=== PATIENT | male | born 1950 | race Caucasian/White ===

== ENCOUNTER 2022-05-07 07:36 | Day surgery (SDC) | payer BC ==
[~2022-05-07] VITALS: Ht 165.1 cm; Wt 91.6 kg
[2022-05-07] VITALS (9 sets, daily range): BP systolic 113–159; BP diastolic 58–74
[~2022-05-07 07:36] MED LIST: FLUO20CA39 PO; LISI5TAB22 PO; METF500T PO; SIMV-42 PO; SYN0.088T PO
[2022-05-07] MEDS ORDERED: vancomycin 1,500 MG in NS 300ml IV soln IV ONE (08:02)
[2022-05-07] MEDS ORDERED: ceFAZolin inj. 2,000 MG in dextrose 5%-water 100 ML IV ONE (08:02)
[2022-05-07] MEDS ORDERED: normal saline 1000ml 1,000 ML IV SCH (08:03)
[2022-05-07] MEDS ORDERED: FLUO40CA PO (08:30)
[2022-05-07] MEDS ORDERED: METF-438 PO (08:30)
[2022-05-07] MEDS ORDERED: LISI-643 PO (08:30)
[2022-05-07] MEDS ORDERED: SEMA0.25 SQ (08:30)
[2022-05-07] MEDS ORDERED: PANT40TA54 PO (08:30)
[2022-05-07] MEDS ORDERED: LEVO50TA8 PO (08:30)
[2022-05-07 08:36] LABS: BASOPHILS % (AUTO) 0.9 % (0-1); EOSINOPHILS # (AUTO) 0.2 X10'3 (0-0.9); EOSINOPHILS % (AUTO) 4.7 % (0-6); HEMOGLOBIN 15.3 g/dl (14.0-17.9); LYMPHOCYTES # (AUTO) 1.4 X10'3 (1.1-4.8); LYMPHOCYTES % (AUTO) 36.8 % (21-51); MEAN CORPUSCULAR HEMOGLOBIN 32.8 PG (27.0-31.0); MEAN CORPUSCULAR VOLUME 96.6 FL (78-98); MEAN PLATELET VOLUME 8.7 FL (7.4-10.4); MONOCYTES # (AUTO) 0.6 X10'3 (0-0.9); MONOCYTES % (AUTO) 15.9 % (2-12); NEUTROPHILS # (AUTO) 1.6 X10'3 (1.8-7.7); NEUTROPHILS % (AUTO) 41.7 % (42-75); PLATELET COUNT 130 X10'3 (140-440); RED BLOOD COUNT 4.66 X10'6 (4.70-6.10); RED CELL DISTRIBUTION WIDTH 13.4 % (11.5-14.5); WHITE BLOOD COUNT 3.9 X10'3 (4.5-11.0)
[2022-05-07] MEDS ORDERED: fentaNYL/PF 50MCG/1 ML 2ML syringe ONE (08:48)
[2022-05-07] MEDS ORDERED: midazolam 1 mg/ML 2ml injection ONE (08:48)
[2022-05-07] MEDS ORDERED: iohexol 350 MG/ML 50ML vial IV ONE (08:48)
[2022-05-07] MEDS ORDERED: LIDOCAINE 2%/EPI 1:100,000 inj. Multi-dose 20 ML VIAL ONE (08:48)
[2022-05-07] MEDS ORDERED: vancomycin 1,000mg inj ONE (08:48)
[2022-05-07 08:58] LABS: ALBUMIN 4.3 G/DL (3.4-5.0); ANION GAP 7 (8-16); BLOOD UREA NITROGEN 14 MG/DL (7-18); BUN/CREATININE RATIO 12.7 (5.4-32.0); CALCIUM 9.5 MG/DL (8.5-10.1); CHLORIDE 104 MMOL/L (99-107); GLUCOSE 113 MG/DL (70-104); MAGNESIUM 1.8 MG/DL (1.5-2.4); POTASSIUM 4.1 MMOL/L (3.5-5.1); SODIUM 141 MMOL/L (135-145); TOTAL CARBON DIOXIDE 30.5 MMOL/L (24-32); eGFR 66 ML/MIN
[2022-05-07 09:00] LABS: TOTAL CELLS COUNTED 100
[2022-05-08 09:47] LABS: PLATELET ESTIMATE DECREASED
== END 2022-05-07 12:45 | disposition home or self-care (01) ==
LOC: SSTAY O 07:36
PROVIDERS: ATTEND Internal Medicine Cardiovascular Disease
DX: I49.5 Sick sinus syndrome (principal); I35.0 Nonrheumatic aortic (valve) stenosis; I10 Essential (primary) hypertension; E78.5 Hyperlipidemia, unspecified; E11.9 Type 2 diabetes mellitus without complications; E03.9 Hypothyroidism, unspecified; K21.9 Gastro-esophageal reflux disease without esophagitis; Z98.890 Other specified postprocedural states; Z98.1 Arthrodesis status; Z87.891 Personal history of nicotine dependence; Z72.89 Other problems related to lifestyle; Z79.84 Long term (current) use of oral hypoglycemic drugs; Z79.899 Other long term (current) drug therapy; Z80.1 Family history of malignant neoplasm of trachea, bronchus and lung
CPT/HCPCS: 33208; 36415; 71045; 80048; 82948; 83735; 85025; 85610; 93005; 99152; 99153; C1769; C1785; C1894; C1898; J0690; J2250; J3010; J3370; J7030; J7040; J7060; Q9967; 85007

== ENCOUNTER 2022-06-01 06:54 | Day surgery (SDC) | payer BC ==
[2022-06-01] VITALS (9 sets, daily range): BP systolic 128–162; BP diastolic 80–94
[~2022-06-01] VITALS: Ht 162.6 cm; Wt 91.5 kg
[~2022-06-01 06:54] MED LIST changes: -FLUO20CA39 PO; +FLUO40CA PO; +LEVO50TA8 PO; +LISI-643 PO; +METF-438 PO; +PANT40TA54 PO; +SEMA0.25 SQ; -SYN0.088T PO
[2022-06-01] MEDS ORDERED: diphenhydrAMINE 25mg capsule PO PRN (07:15)
[2022-06-01] MEDS ORDERED: normal saline 1,000 ML IV SCH (07:15)
[2022-06-01] MEDS ORDERED: FLUO20CA39 PO (07:17)
[2022-06-01] MEDS ORDERED: ASPI81TA52 PO (07:17)
[2022-06-01] MEDS ORDERED: MULT-1085 PO (07:18)
[2022-06-01 07:41] LABS: BASOPHILS % (AUTO) 0.9 % (0-1); EOSINOPHILS # (AUTO) 0.2 X10'3 (0-0.9); EOSINOPHILS % (AUTO) 4.7 % (0-6); HEMOGLOBIN 14.9 g/dl (14.0-17.9); LYMPHOCYTES # (AUTO) 1.3 X10'3 (1.1-4.8); LYMPHOCYTES % (AUTO) 36.5 % (21-51); MEAN CORPUSCULAR HEMOGLOBIN 32.8 PG (27.0-31.0); MEAN CORPUSCULAR HGB CONC 34.6 g/dL (33.0-36.5); MEAN PLATELET VOLUME 8.3 FL (7.4-10.4); MONOCYTES # (AUTO) 0.5 X10'3 (0-0.9); MONOCYTES % (AUTO) 13.7 % (2-12); NEUTROPHILS # (AUTO) 1.5 X10'3 (1.8-7.7); NEUTROPHILS % (AUTO) 44.2 % (42-75); PLATELET COUNT 121 X10'3 (140-440); RED BLOOD COUNT 4.53 X10'6 (4.70-6.10); RED CELL DISTRIBUTION WIDTH 13.7 % (11.5-14.5); WHITE BLOOD COUNT 3.5 X10'3 (4.5-11.0)
[2022-06-01 07:52] LABS: ALBUMIN 3.9 G/DL (3.4-5.0); ANION GAP 5 (8-16); BLOOD UREA NITROGEN 12 MG/DL (7-18); BUN/CREATININE RATIO 10.7 (5.4-32.0); CALCIUM 9.4 MG/DL (8.5-10.1); CHLORIDE 105 MMOL/L (99-107); CREATININE 1.12 MG/DL (0.60-1.10); GLUCOSE 116 MG/DL (70-104); MAGNESIUM 1.7 MG/DL (1.5-2.4); POTASSIUM 4.1 MMOL/L (3.5-5.1); SODIUM 140 MMOL/L (135-145); TOTAL CARBON DIOXIDE 29.8 MMOL/L (24-32); eGFR 64 ML/MIN
[2022-06-01] MEDS ORDERED: SODIUM BICARB 150mEq/D5W 1L 1,000 ML IV ONE (08:05)
[2022-06-01] MEDS ORDERED: midazolam 1 mg/ML 2ml injection ONE ×2 (11:11→12:01)
[2022-06-01] MEDS ORDERED: heparin 1,000unit/ml 10ml vial 10 ML ONE (11:11)
[2022-06-01] MEDS ORDERED: iohexol 350 MG/ML 50ML vial IV ONE (11:11)
[2022-06-01] MEDS ORDERED: LIDOcaine 1% 30ml preserv. free vial ONE (11:11)
[2022-06-01] MEDS ORDERED: fentaNYL/PF 50MCG/1 ML 2ML syringe ONE (11:11)
[2022-06-01] MEDS ORDERED: iohexol 350MG/ML 100ml bottle IV ONE (11:11)
--- NOTE | 2022-06-01 13:10 | NUR ---
Pt returns from [facility]. Report received from [facility] VO. Right groin site arterial closure with perclose, venous closure with manual pressure with slight "ooze" Femostop in place at 40. Femostop to be removed at 1400. Pedal Pulses +, Dressing CD&I, no signs of bleeding, bruising or hematoma noted. Family at bedside, pt drinking water without issues. Family planning to leave for "a little bit and get lunch". They are planning to bring back lunch for pt. Pt resting quietly.
[2022-06-01] MEDS ORDERED: HYDROcodone/acetaminophen 5mg/325mg tablet PO PRN (13:25)
[2022-06-01] MEDS ORDERED: HYDROcodone/acetaminophen 10/325mg tab PO PRN (13:25)
[2022-06-01] MEDS ORDERED: proCHLORperazine 10 MG/2 ml inj IV PRN (13:25)
[2022-06-01] MEDS ORDERED: ondansetron/PF 4mg/2ml inj IV PRN (13:25)
[2022-06-01] MEDS ORDERED: normal saline 1000ml 1,000 ML IV SCH (13:25)
== END 2022-06-01 15:55 | disposition home or self-care (01) ==
LOC: SSTAY O 06:54
PROVIDERS: ATTEND Internal Medicine Cardiovascular Disease
DX: I35.0 Nonrheumatic aortic (valve) stenosis (principal); I25.10 Atherosclerotic heart disease of native coronary artery without angina pectoris; I10 Essential (primary) hypertension; E78.5 Hyperlipidemia, unspecified; E11.9 Type 2 diabetes mellitus without complications; E03.9 Hypothyroidism, unspecified; K21.9 Gastro-esophageal reflux disease without esophagitis; K76.0 Fatty (change of) liver, not elsewhere classified; I49.5 Sick sinus syndrome; Z95.0 Presence of cardiac pacemaker; Z79.82 Long term (current) use of aspirin; Z79.84 Long term (current) use of oral hypoglycemic drugs; Z79.899 Other long term (current) drug therapy; Z98.890 Other specified postprocedural states; Z87.891 Personal history of nicotine dependence; Z72.89 Other problems related to lifestyle; Z80.1 Family history of malignant neoplasm of trachea, bronchus and lung; Z82.49 Family history of ischemic heart disease and other diseases of the circulatory system
CPT/HCPCS: 36415; 80048; 82948; 83735; 85025; 85610; 93005; 93456; 99152; 99153; C1751; C1760; C1769; C1894; J1644; J2250; J3010; J3490; J7030; Q0163; Q9967; C1725

== ENCOUNTER 2022-06-15 09:52 | Outpatient (CLI) | payer BC ==
[~2022-06-15 09:52] MED LIST changes: +ASPI81TA52 PO; +FLUO20CA39 PO; -FLUO40CA PO; -LISI5TAB22 PO; -METF-438 PO; +MULT-1085 PO
[2022-06-15 10:56] LABS: BASOPHILS # (AUTO) 0.1 X10'3 (0-0.2); BASOPHILS % (AUTO) 1.6 % (0-1); EOSINOPHILS # (AUTO) 0.2 X10'3 (0-0.9); EOSINOPHILS % (AUTO) 4.6 % (0-6); HEMATOCRIT 49.1 % (42.0-52.0); HEMOGLOBIN 16.6 g/dl (14.0-17.9); LYMPHOCYTES # (AUTO) 1.4 X10'3 (1.1-4.8); LYMPHOCYTES % (AUTO) 33.3 % (21-51); MEAN CORPUSCULAR HEMOGLOBIN 32.3 PG (27.0-31.0); MEAN CORPUSCULAR HGB CONC 33.8 g/dL (33.0-36.5); MEAN CORPUSCULAR VOLUME 95.5 FL (78-98); MEAN PLATELET VOLUME 8.4 FL (7.4-10.4); MONOCYTES # (AUTO) 0.4 X10'3 (0-0.9); MONOCYTES % (AUTO) 10.1 % (2-12); NEUTROPHILS # (AUTO) 2.1 X10'3 (1.8-7.7); NEUTROPHILS % (AUTO) 50.4 % (42-75); PLATELET COUNT 164 X10'3 (140-440); RED BLOOD COUNT 5.14 X10'6 (4.70-6.10); RED CELL DISTRIBUTION WIDTH 14.1 % (11.5-14.5); WHITE BLOOD COUNT 4.2 X10'3 (4.5-11.0)
[2022-06-15 11:07] LABS: APTT 29 SECONDS (22-32)
[2022-06-15 11:09] LABS: ALANINE AMINOTRANSFERASE 49 U/L (12-78); ALBUMIN 4.2 G/DL (3.4-5.0); ALBUMIN/GLOBULIN RATIO 1.1 (1.1-1.5); ALKALINE PHOSPHATASE 88 IU/L (46-116); ANION GAP 6 (8-16); ASPARTATE AMINO TRANSFERASE 31 U/L (10-37); BILIRUBIN,TOTAL 0.8 MG/DL (0.1-1.0); BLOOD UREA NITROGEN 20 MG/DL (7-18); BUN/CREATININE RATIO 16.7 (10.0-20.0); CALCIUM 9.8 MG/DL (8.5-10.1); CHLORIDE 102 MMOL/L (99-107); GLUCOSE 159 MG/DL (70-104); POTASSIUM 4.4 MMOL/L (3.5-5.1); SODIUM 138 MMOL/L (135-145); TOTAL CARBON DIOXIDE 30.3 MMOL/L (24-32); TOTAL PROTEIN 7.9 G/DL (6.4-8.2); eGFR 60 ML/MIN
[2022-06-15 11:29] LABS: CLARITY,URINE CLEAR (Clear); COLOR,URINE YELLOW (Yellow); GLUCOSE, URINE NEGATIVE (Neg); KETONES,URINE NEGATIVE (Neg); LEUKOCYTE ESTERASE ,URINE NEGATIVE (Neg); NITRITES, URINE NEGATIVE (Neg); OCCULT BLOOD,URINE TRACE-INTACT (Neg); PROTEIN,URINE NEGATIVE (Neg); UROBILINOGEN,URINE 0.2 E.U/dL (0.2-1.0)
[2022-06-15] MEDS ORDERED: IODIXANOL 320 MG/ML INFUS..BTL 100ML IV ONE (11:32)
[2022-06-15 11:33] LABS: UA COLLECTION TYPE CLN CATCH MIDSTREAM
[2022-06-15 11:40] LABS: BACTERIA,URINE FEW /HPF (Neg); FINE GRANULAR CAST 0-3 /LPF (NEGATIVE); MUCUS STRANDS MODERATE /LPF (Neg); RBC,URINE 0-2 /HPF (0-2); SQUAMOUS EPITHELIAL CELL,UR FEW /LPF (FEW); WBC,URINE 0-4 /HPF (0-4)
== END 2022-06-15 23:59 | disposition home or self-care (01) ==
LOC: RAD 09:52
PROVIDERS: ATTEND Internal Medicine Cardiovascular Disease
DX: I35.0 Nonrheumatic aortic (valve) stenosis (principal); R06.02 Shortness of breath; I65.29 Occlusion and stenosis of unspecified carotid artery
CPT/HCPCS: 36415; 71046; 71275; 74174; 80053; 81001; 85025; 85610; 85730; 94010; 94727; 94729; J3490; Q9967

== ENCOUNTER 2022-06-28 14:52 | Outpatient (CLI) | payer BC ==
[~2022-06-28] VITALS: Ht 162.6 cm; Wt 90.7 kg
--- NOTE | 2022-06-28 15:12 | NUR ---
Patient and Natalia and son were in the TAVR clinic today to consult with Dr. Krause, Dr. Stacia Morelos and Dr. Dumont. [facility] Walk test completed. Vital signs measured. Patient education reviewed and questions answered.
[2022-06-28 15:15] VITALS: BP 143/80
== END 2022-06-28 23:59 | disposition home or self-care (01) ==
LOC: TAVR 14:52
PROVIDERS: ATTEND Internal Medicine Cardiovascular Disease
DX: I08.0 Rheumatic disorders of both mitral and aortic valves (principal); R06.02 Shortness of breath; I65.29 Occlusion and stenosis of unspecified carotid artery
CPT/HCPCS: 93308

== ENCOUNTER 2022-11-29 06:21 | Inpatient (IN) | payer BC ==
[2022-11-28 09:20] LABS: BILIRUBIN,URINE NEGATIVE (Neg); CLARITY,URINE CLEAR (Clear); COLOR,URINE YELLOW (Yellow); GLUCOSE, URINE NEGATIVE (Neg); KETONES,URINE NEGATIVE (Neg); LEUKOCYTE ESTERASE ,URINE NEGATIVE (Neg); NITRITES, URINE NEGATIVE (Neg); OCCULT BLOOD,URINE TRACE-INTACT (Neg); PH,URINE 5.5 (4.8-8.0); PROTEIN,URINE NEGATIVE (Neg); UROBILINOGEN,URINE 0.2 E.U/dL (0.2-1.0)
[2022-11-28 09:22] LABS: UA COLLECTION TYPE VOIDED
[2022-11-28 09:22] LABS: BASOPHILS % (AUTO) 0.6 % (0-1); EOSINOPHILS # (AUTO) 0.2 X10'3 (0-0.9); EOSINOPHILS % (AUTO) 4.2 % (0-6); LYMPHOCYTES # (AUTO) 1.3 X10'3 (1.1-4.8); LYMPHOCYTES % (AUTO) 28.5 % (21-51); MEAN CORPUSCULAR HEMOGLOBIN 31.8 PG (27.0-31.0); MEAN CORPUSCULAR HGB CONC 33.5 g/dL (33.0-36.5); MEAN CORPUSCULAR VOLUME 94.9 FL (78-98); MEAN PLATELET VOLUME 8.8 FL (7.4-10.4); MONOCYTES # (AUTO) 0.5 X10'3 (0-0.9); MONOCYTES % (AUTO) 11.2 % (2-12); NEUTROPHILS # (AUTO) 2.6 X10'3 (1.8-7.7); NEUTROPHILS % (AUTO) 55.5 % (42-75); PRE OP HEMATOCRIT 45.7 % (42.0-52.0); PRE OP HEMOGLOBIN 15.3 g/dL (14.0-17.9); PRE OP PLATELET COUNT 138 X10'3 (140-440); PRE OP WHITE BLOOD COUNT 4.6 10'3 (4.8-10.8); RED BLOOD COUNT 4.81 X10'6 (4.70-6.10); RED CELL DISTRIBUTION WIDTH 14.3 % (11.5-14.5)
[2022-11-28 09:31] LABS: BACTERIA,URINE NONE SEEN /HPF (Neg); MUCUS STRANDS FEW /LPF (Neg); RBC,URINE 0-2 /HPF (0-2); SQUAMOUS EPITHELIAL CELL,UR FEW /LPF (FEW); WBC,URINE NONE SEEN /HPF (0-4)
[2022-11-28 09:31] LABS: HEMOGLOBIN A1C 5.9 % (4.5-6.2)
[2022-11-28 09:38] LABS: ALBUMIN/GLOBULIN RATIO 1.3 (1.1-1.5); ALKALINE PHOSPHATASE 78 IU/L (46-116); BLOOD UREA NITROGEN 22 MG/DL (7-18); BUN/CREATININE RATIO 15.8 (10.0-20.0); CALCIUM 9.8 MG/DL (8.5-10.1); CHLORIDE 102 MMOL/L (99-107); CREATININE 1.39 MG/DL (0.60-1.10); PRE OP ALT 35 U/L (30-65); PRE OP ANION GAP 4 (8-16); PRE OP AST 26 U/L (10-37); PRE OP BILIRUB, TOTAL 0.8 MG/DL (0.0-1.0); PRE OP GLUCOSE 119 MG/DL (70-104); PRE OP POTASSIUM 4.5 MMOL/L (3.4-5.1); PRE OP SODIUM 137 MMOL/L (135-145); PRO BRAIN NATRIURETIC PEPTIDE 72 PG/ML (0-125); THYROID STIMULATING HORMONE 1.61 ulU/ml (0.34-4.50); TOTAL CARBON DIOXIDE 30.7 MMOL/L (24-32); TOTAL PROTEIN 7.2 G/DL (6.4-8.2); eGFR 50 ML/MIN
[2022-11-29] VITALS (24 sets, daily range): BP systolic 101–152; BP diastolic 62–83; PULSE 63–94; RESP 12–23; TEMP 97.6–98.3; O2SAT 92–99
[~2022-11-29] VITALS: Ht 165.1 cm; Wt 86.0 kg
[~2022-11-29 06:21] MED LIST changes: +aspirin 325mg tablet PO ONE; +cefazolin 2gm/D5W 100mL 100 ML IV ONE; +famotidine 20mg tablet PO ONE; +ondansetron/PF 4mg/2ml inj IV PRN; +ringers solution, lacted 1,000 ML IV SCH; +vancomycin 1,500 MG in NS 300ml IV soln IV ONE
[2022-11-29] MEDS ORDERED: protamine sulfate 10mg/ml inj. ONE (06:57)
[2022-11-29] MEDS: nitroPRUSSIDE (NIPRIDE) (200MCG/ML) 100ML Drip IV SCH ×2 (07:20→10:39)
[2022-11-29] MEDS: phenylephrine inj 50 MG in normal saline 250ml IV solN IV SCH ×2 (07:20→10:39)
[2022-11-29] MEDS ORDERED: LIDOcaine 1% (10mg/ml)w/preservative inj. 20ml MDV ONE ×2 (09:02→09:07)
[2022-11-29] MEDS ORDERED: iohexol 350MG/ML 100ml bottle IV ONE ×2 (09:02→09:07)
[2022-11-29] MEDS ORDERED: heparin 1,000 UNITS/NS 500ml 1,500 ML ONE (09:02)
[2022-11-29] MEDS ORDERED: iohexol 350 MG/ML 50ML vial IV ONE (09:07)
[2022-11-29] MEDS ORDERED: heparin 1,000 UNITS/NS 500ml 0 ML ONE (09:07)
[2022-11-29] MEDS ORDERED: sevoflurane 250ml liquid IH ONE (09:19)
[2022-11-29] MEDS ORDERED: fentaNYL/PF 50MCG/1 ML 2ML syringe ONE (09:21)
[2022-11-29] MEDS ORDERED: midazolam 1 mg/ML 2ml injection ONE (09:22)
[2022-11-29] MEDS ORDERED: propofol inj 20 ML IV ONE (09:38)
[2022-11-29] MEDS ORDERED: heparin 1,000unit/ml 10ml vial 10 ML ONE (09:38)
[2022-11-29] MEDS ORDERED: albumin (Human) 5% 250ml 250 ML IV ONE (10:27)
[2022-11-29] MEDS ORDERED: hydrALAZINE 20mg/ml inj. IV PRN (10:35)
[2022-11-29] MEDS ORDERED: pantoprazole 40mg Tablet.DR PO PRN (10:35)
[2022-11-29] MEDS ORDERED: ALPRAZolam 0.25mg tablet PO PRN (10:35)
[2022-11-29] MEDS ORDERED: potassium Cl 40MEQ/270ML bag 250 ML IV PRN (10:35)
[2022-11-29] MEDS ORDERED: labetalol 20mg/4ml (5mg/ml) syringe IV PRN (10:35)
[2022-11-29] MEDS ORDERED: proCHLORperazine 10 MG/2 ml inj IV PRN ×2 (10:35→11:25)
[2022-11-29] MEDS ORDERED: insulin regular, human U-100 3ml vial - multi-dose SQ SCH (10:35)
[2022-11-29] MEDS ORDERED: MESSAGE TO PHARMACY PO ONE (10:35)
[2022-11-29] MEDS ORDERED: insulin Lispro (HumaLOG) vial - multi-dose SQ SCH (10:35)
[2022-11-29] MEDS ORDERED: potassium CL 10mEq/100ml bag 100 ML IV PRN (10:35)
[2022-11-29] MEDS ORDERED: diphenhydrAMINE 25mg capsule PO PRN (10:35)
[2022-11-29] MEDS ORDERED: potassium Cl 40MEQ/1/2NS 520ml 520 ML IV PRN (10:35)
[2022-11-29] MEDS ORDERED: potassium Cl 20mEq/100mL bag 100 ML IV PRN (10:35)
[2022-11-29] MEDS ORDERED: docusate sod 100mg capsule PO PRN (10:35)
[2022-11-29] MEDS ORDERED: HYDROcodone/acetaminophen 5mg/325mg tablet PO PRN (10:35)
[2022-11-29] MEDS ORDERED: DEXTROSE 15 GM of carb/4 tabs (each vial/BOTTLE has 4 tablets) PO PRN ×2 (10:35)
[2022-11-29] MEDS ORDERED: acetaminophen 325mg tablet PO PRN (10:35)
[2022-11-29] MEDS ORDERED: magnesium 2GM in 50ml NS 50 ML IV PRN (10:35)
[2022-11-29] MEDS ORDERED: glucagon, human recombinant 1mg kit SUBCUT PRN (10:35)
[2022-11-29] MEDS ORDERED: ondansetron/PF 4mg/2ml inj IV PRN ×2 (10:35→11:25)
[2022-11-29] MEDS ORDERED: potassium Cl 20 mEq SR tablet PO PRN (10:35)
[2022-11-29] MEDS ORDERED: magnesium 4gm in 100ml NS 100 ML IV PRN (10:35)
[2022-11-29] MEDS ORDERED: dextrose 50%-water 50ml dispensing syringe IV PRN ×2 (10:35)
--- NOTE | 2022-11-29 10:39 | NUR ---
pt rcvd from OR on bed with anesthiologist Lisa at bedside and [employer] Supervisor RN. Bilateral groin perclosure sites assessed, dressing CDI and no hematoma present. Left dorsalis pedal pulse strong and palpable. right dorsalis pedal pulse weak with doppler. Pt is awake and responding appropriately. RAGLAND. Bilateral side rails up.
[2022-11-29] MEDS ORDERED: morphine 4 MG/ML inj SYRINge IV PRN (11:25)
[2022-11-29] MEDS ORDERED: meperidine/PF 25mg/ml syringe IV PRN ×3 (11:25)
[2022-11-29] MEDS ORDERED: morphine 2 MG/ML inj. syringe IV PRN (11:25)
[2022-11-29] MEDS ORDERED: ringers solution, lacted 1,000 ML IV SCH (11:25)
[2022-11-29] MEDS: normal saline 1000ml 1,000 ML IV SCH ×2 (11:30→20:46)
--- NOTE | 2022-11-29 11:59 | NUR ---
pt transferred on telemetry, side rails ups x2. All belongings with patient: glasses, hearing aids on, cpap, and clothing. Natalia in room. Bilateral groin site assessed with receving RN, Genna, dressings CDI no hematoma present. Pt placed on telemetry and call light in reach.
[2022-11-29] MEDS: sod chloride 0.9% 10ml flush syringe IV SCH (14:29)
[2022-11-29] MEDS: ceFAZolin 1GM/D5W- ADD-VANTAGE 50 ML IV SCH ×2 (16:28→23:54)
--- NOTE | 2022-11-29 16:45 | NUR ---
PT OOB ORDERS SET FOR 1630. PT SAT UP AND AMBULATED TO THE BATHROOM. HE THEN BEGAN AMBULATING AND WALKED APPROX 100FT WHEN HIS TAVR SITE STARTED BLEEDING AT THE RIGHT GROIN. GOT PATIENT BACK IN BED WITH PRESSURE PLACED IMMEDIATELY JUST ABOVE THE TAVR SITE AND PLACED A FEM STOP ON AT 20MMHG ABOVE SYSTOLIC BP. PALPABLE PEDAL PULSE POSITIVE AND DR NGUYEN NOTIFIED RIGHT AWAY. ORDERS RECEIVED TO CONTINUE FEM STOP AND LAY FLAT FOR 3 MORE HOURS. BP STABLE AT 118 SYSTOLIC AND PATIENT LOST MAYBE ONE TABLESPOON. WILL CONTINUE TO CLOSELY MONITOR
--- NOTE | 2022-11-29 19:11 | NUR ---
Patient in room PCU 3018. I have received report from Genna and had the opportunity to ask questions and assume patient care.
[2022-11-29] MEDS: vancomycin/NS 1 GM ADD-VANTAGE 250 ML IV SCH (20:46)
[2022-11-29] MEDS ORDERED: insulin glargine (Lantus) pen - multi-dose SQ SCH (21:00)
[2022-11-30] MEDS: sod chloride 0.9% 10ml flush syringe IV SCH ×2 (00:25→09:40)
[2022-11-30 02:00] VITALS: BP 134/55; PULSE 64; RESP 16; TEMP 98.4; O2SAT 93
--- NOTE | 2022-11-30 06:26 | NUR ---
Problems reprioritized. Patient report given, questions answered & plan of care reviewed with Talha.
[2022-11-30] MEDS: normal saline 1000ml 1,000 ML IV SCH (06:35)
[2022-11-30 07:00] LABS: BASOPHILS % (AUTO) 0.6 % (0-1); EOSINOPHILS # (AUTO) 0.1 X10'3 (0-0.9); EOSINOPHILS % (AUTO) 3.4 % (0-6); HEMATOCRIT 39.4 % (42.0-52.0); HEMOGLOBIN 13.2 g/dl (14.0-17.9); LYMPHOCYTES % (AUTO) 23.6 % (21-51); MEAN CORPUSCULAR HEMOGLOBIN 31.6 PG (27.0-31.0); MEAN CORPUSCULAR HGB CONC 33.4 g/dL (33.0-36.5); MEAN CORPUSCULAR VOLUME 94.7 FL (78-98); MEAN PLATELET VOLUME 8.6 FL (7.4-10.4); MONOCYTES # (AUTO) 0.5 X10'3 (0-0.9); MONOCYTES % (AUTO) 11.9 % (2-12); NEUTROPHILS # (AUTO) 2.7 X10'3 (1.8-7.7); NEUTROPHILS % (AUTO) 60.5 % (42-75); PLATELET COUNT 88 X10'3 (140-440); RED BLOOD COUNT 4.16 X10'6 (4.70-6.10); RED CELL DISTRIBUTION WIDTH 14.2 % (11.5-14.5); WHITE BLOOD COUNT 4.4 X10'3 (4.5-11.0)
[2022-11-30 07:26] LABS: ALANINE AMINOTRANSFERASE 29 U/L (12-78); ALBUMIN 3.3 G/DL (3.4-5.0); ALBUMIN/GLOBULIN RATIO 1.3 (1.1-1.5); ALKALINE PHOSPHATASE 64 IU/L (46-116); ANION GAP 4 (8-16); ASPARTATE AMINO TRANSFERASE 29 U/L (10-37); BILIRUBIN,TOTAL 0.8 MG/DL (0.1-1.0); BLOOD UREA NITROGEN 14 MG/DL (7-18); BUN/CREATININE RATIO 11.4 (10.0-20.0); CHLORIDE 105 MMOL/L (99-107); CREATININE 1.23 MG/DL (0.60-1.10); GLUCOSE 101 MG/DL (70-104); MAGNESIUM 1.6 MG/DL (1.5-2.4); POTASSIUM 3.8 MMOL/L (3.5-5.1); PRO BRAIN NATRIURETIC PEPTIDE 425 PG/ML (0-125); SODIUM 140 MMOL/L (135-145); TOTAL CARBON DIOXIDE 31.5 MMOL/L (24-32); TOTAL PROTEIN 5.9 G/DL (6.4-8.2); eCRCL 47 ML/MIN; eGFR 58 ML/MIN
[2022-11-30 07:28] VITALS: RESP 23; O2SAT 96
[2022-11-30 07:32] VITALS: BP 133/71; PULSE 60; RESP 16; TEMP 98.8; O2SAT 96
[2022-11-30] MEDS ORDERED: aspirin 81mg tab.chew PO SCH (08:30)
[2022-11-30] MEDS: vancomycin/NS 1 GM ADD-VANTAGE 250 ML IV SCH (09:40)
[2022-11-30] MEDS: ceFAZolin 1GM/D5W- ADD-VANTAGE 50 ML IV SCH (09:40)
[2022-11-30 11:11] VITALS: BP 126/63; PULSE 60; RESP 19; TEMP 99; O2SAT 94
== END 2022-11-30 15:00 | disposition home or self-care (01) | DRG 267 ==
LOC: PAS IN 06:21 → EDSTATUS 08:45 → PCU 3S 12:14
PROVIDERS: ADMIT Internal Medicine Cardiovascular Disease; ATTEND Internal Medicine Cardiovascular Disease
PROC: 03HY32Z Insertion of Monitoring Device into Upper Artery, Percutaneous Approach (ICD-10-PCS; 2022-11-29)
PROC: B41D1ZZ Fluoroscopy of Aorta and Bilateral Lower Extremity Arteries using Low Osmolar Contrast (ICD-10-PCS; 2022-11-29)
PROC: 02RF38Z Replacement of Aortic Valve with Zooplastic Tissue, Percutaneous Approach (ICD-10-PCS; principal; 2022-11-29 09:19)
DX: I35.0 Nonrheumatic aortic (valve) stenosis (principal); Z00.6 Encounter for examination for normal comparison and control in clinical research program; I10 Essential (primary) hypertension; E03.9 Hypothyroidism, unspecified; E11.9 Type 2 diabetes mellitus without complications; E78.5 Hyperlipidemia, unspecified; Z95.0 Presence of cardiac pacemaker
CPT/HCPCS: 33361; 36415; 71045; 71046; 76937; 80053; 81001; 82948; 83036; 83735; 83880; 84443; 85025; 85347; 85610; 85730; 86885; 86900; 86901; 86920; 87081; 93005; 93308; 94760; A4618; A6258; A6449; C1756; C1760; C1769; C1894; G0378; J0690; J1644; J1815; J2250; J2370; J2704; J2720; J3010; J3370; J3490; J7030; J7040; J7050; J7120; P9045; Q9967